=== PATIENT | male | born 1970 | race Two or more races ===

== ENCOUNTER → 2020-07-07 | Outpatient (CLI) | payer OTHER | END | disposition home or self-care (01) | LOC: OFIC 805 12:50 | PROVIDERS: ATTEND Otolaryngology Otology & Neurotology | DX: H92.12 Otorrhea, left ear (principal); H90.12 Conductive hearing loss, unilateral, left ear, with unrestricted hearing on the contralateral side; H72.92 Unspecified perforation of tympanic membrane, left ear; H69.83 Other specified disorders of Eustachian tube, bilateral ==

== ENCOUNTER 2020-08-06 07:54 | Outpatient (CLI) | payer OTHER | END 2020-08-06 15:21 | disposition home or self-care (01) | LOC: OFIC 805 07:54 | PROVIDERS: ATTEND Otolaryngology Otology & Neurotology | DX: H92.12 Otorrhea, left ear (principal); H90.12 Conductive hearing loss, unilateral, left ear, with unrestricted hearing on the contralateral side; H72.92 Unspecified perforation of tympanic membrane, left ear; H69.83 Other specified disorders of Eustachian tube, bilateral ==

== ENCOUNTER 2020-09-26 10:01 | Outpatient (CLI) | payer OTHER | END 2020-09-26 16:26 | disposition home or self-care (01) | LOC: OFIC 805 10:01 | PROVIDERS: ATTEND Otolaryngology Otology & Neurotology | DX: H69.83 Other specified disorders of Eustachian tube, bilateral (principal); H72.92 Unspecified perforation of tympanic membrane, left ear; H90.12 Conductive hearing loss, unilateral, left ear, with unrestricted hearing on the contralateral side; H92.12 Otorrhea, left ear ==

== ENCOUNTER 2020-10-03 11:22 | Day surgery (SDC) | payer OTHER ==
[2020-10-03] MEDS ORDERED: ZOFRAN8 MG PO (16:54)
[2020-10-03] MEDS ORDERED: CILOXAN5 ML OTIC (16:54)
[2020-10-03] MEDS ORDERED: AMOX1TAB5 PO (16:55)
== END 2020-10-03 21:00 | disposition home or self-care (01) ==
LOC: CIR.AMB 11:22
PROVIDERS: ATTEND Otolaryngology Otology & Neurotology
DX: H72.02 Central perforation of tympanic membrane, left ear (principal); H90.12 Conductive hearing loss, unilateral, left ear, with unrestricted hearing on the contralateral side; Z20.822 Contact with and (suspected) exposure to COVID-19

== ENCOUNTER 2020-10-13 14:03 | Outpatient (CLI) | payer OTHER ==
[~2020-10-13 14:03] MED LIST: AMOX1TAB5 PO; CILOXAN5 ML OTIC; ZOFRAN8 MG PO
== END 2020-10-13 17:53 | disposition home or self-care (01) ==
LOC: OFIC 805 14:03
PROVIDERS: ATTEND Otolaryngology Otology & Neurotology
DX: H69.83 Other specified disorders of Eustachian tube, bilateral (principal); H92.12 Otorrhea, left ear; H90.12 Conductive hearing loss, unilateral, left ear, with unrestricted hearing on the contralateral side; H72.92 Unspecified perforation of tympanic membrane, left ear

== ENCOUNTER 2020-11-12 08:34 | Outpatient (CLI) | payer OTHER | END 2020-11-12 09:09 | disposition home or self-care (01) | LOC: OFIC 805 08:34 | PROVIDERS: ATTEND Otolaryngology Otology & Neurotology | DX: H92.12 Otorrhea, left ear (principal); H90.12 Conductive hearing loss, unilateral, left ear, with unrestricted hearing on the contralateral side; H72.92 Unspecified perforation of tympanic membrane, left ear; H69.83 Other specified disorders of Eustachian tube, bilateral ==